=== PATIENT | male | born 1950 | race Two or more races ===

== ENCOUNTER 2018-12-08 18:30 | Emergency (ER) | payer MEDICARE, MEDICAID ==
[~2018-12-08] VITALS: Ht 167.6 cm; Wt 68.9 kg
[2018-12-08] MEDS ORDERED: DULO60CA45 PO (18:37)
[2018-12-08] MEDS ORDERED: ATOR10TA PO (18:37)
[2018-12-08] MEDS ORDERED: FURO-144 PO (18:37)
[2018-12-08] MEDS ORDERED: AMLO5TAB9 PO (18:37)
[2018-12-08] MEDS ORDERED: CARV12.52 PO (18:37)
[2018-12-08] MEDS ORDERED: METF500T3 PO (18:37)
[2018-12-08] MEDS ORDERED: ESCI10TA PO (18:37)
[2018-12-08] MEDS ORDERED: RISP0.253 PO (18:37)
[2018-12-08 18:55] LABS: BASOPHILS # (AUTO) 0.1 /CMM (0.0-0.2); BASOPHILS % (AUTO) 1.2 % (0.0-2.0); EOSINOPHILS % (AUTO) 4.2 % (0.0-6.0); HEMATOCRIT 33 % (39-51); LYMPHOCYTES # (AUTO) 1.8 /CMM (0.8-4.8); LYMPHOCYTES % (AUTO) 36.5 % (20.0-44.0); MEAN CORPUSCULAR HGB CONC 34 g/dl (31.0-36.0); MEAN CORPUSCULAR VOLUME 98 fL (80-96); MONOCYTES # (AUTO) 0.5 /CMM (0.1-1.30); MONOCYTES % (AUTO) 9.3 % (2.0-12.0); NEUTROPHILS # (AUTO) 2.4 /CMM (1.8-8.9); NEUTROPHILS % (AUTO) 48.8 % (43.0-81.0); PLATELET COUNT (AUTO) 230 /CMM (150-450); RED BLOOD CELL COUNT(AUTO) 3.36 MIL/uL (4.5-6.0); WHITE BLOOD COUNT (AUTO) 4.9 K/uL (4.3-11.0)
[2018-12-08] MEDS ORDERED: IV NS 0.9% 1,000 ML BAG IV ONE ×2 (19:00→20:00)
[2018-12-08] MEDS ORDERED: MECLIZINE HCL 12.5 MG TABLET PO ONE (19:00)
[2018-12-08] MEDS ORDERED: MECLIZINE HCL 25 MG TABLET ONE (19:06)
--- NOTE | 2018-12-08 19:15 | NUR ---
[id number], FROM [facility], HAD SYNCOPAL EPISODE IN THE BATHROOM AFTER NAUSEA VOMITING, BS 369. PT AAOX3, VSS. RR EVEN & UNLABORED. DENIES CP, SOB, WEAKNESS @ THIS TIME. PT SEEN & EVAL'D BY DR. WINSLOW. PLACED ON PILOT. SR. MEDICATED ORDERED, PT STEVEN WELL. WILL CONT TO MONITOR.
[2018-12-08 19:55] LABS: ALANINE AMINOTRANSFERASE 13 U/L (12-78); ALBUMIN 2.7 g/dL (3.4-5.0); ALKALINE PHOSPHATASE 117 U/L (46-116); ASPARTATE AMINOTRANSFERASE 16 U/L (15-37); BILIRUBIN,DIRECT 0.1 mg/dL (0.0-0.2); BILIRUBIN,TOTAL 0.2 mg/dL (0.2-1.0); CALCIUM, SERUM 8.8 mg/dL (8.5-10.1); CARBON DIOXIDE 30 mmol/L (21-32); CHLORIDE 103 mmol/L (98-107); CREATININE 1.9 mg/dL (0.6-1.3); SODIUM SERUM 139 mmol/L (136-145); TOTAL PROTEIN, SERUM 7.8 g/dL (6.4-8.2); UREA NITROGEN, BLOOD 50 mg/dL (7-18)
[2018-12-08 19:57] LABS: GLUCOSE 374 mg/dL (74-106)
--- NOTE | 2018-12-08 20:57 | NUR ---
CALLED [facility] FOR BLS CARE WORKER. ETA 1.5 HRS TRIP# [id number]
--- NOTE | 2018-12-08 21:00 | NUR ---
Patient is resting comfortably in bed with eyes closed. Easily aroused. VSS. DENIES CP, SOB, DIZZINESS, N/V @ THIS TIME. WILL CONT TO MONITOR.
--- NOTE | 2018-12-08 22:22 | NUR ---
[facility] CALLED TO INFORM US ABOUT RUNNING LATE. [id number] NEW ETA
--- NOTE | 2018-12-08 23:07 | NUR ---
IV removed. Catheter intact and site benign. Pressure and 4x4 applied to site. No bleeding noted.
[2018-12-09 00:38] VITALS: BP 121/84
== END 2018-12-09 00:38 | disposition home or self-care (01) ==
LOC: ER 18:30
DX: E11.65 Type 2 diabetes mellitus with hyperglycemia (principal); E86.0 Dehydration; I11.0 Hypertensive heart disease with heart failure; I50.9 Heart failure, unspecified; E78.5 Hyperlipidemia, unspecified; F32.9 Major depressive disorder, single episode, unspecified; Z79.899 Other long term (current) drug therapy; W01.0XXA Fall on same level from slipping, tripping and stumbling without subsequent striking against object, initial encounter; Y93.89 Activity, other specified; Y92.091 Bathroom in other non-institutional residence as the place of occurrence of the external cause; Y99.8 Other external cause status
CPT/HCPCS: 36415; 70450; 71045; 80048; 80076; 84484; 85025; 93005; 96360; 96361; 99284; J7030 ×2; J8597